=== PATIENT | female | born 1965 | race Caucasian/White ===

== ENCOUNTER → 2016-07-03 | Outpatient (CLI) | payer OTHER ==
[~2016-07-03] MED LIST: ALBU8.5H5 INH; CALCIUM PO; D MANNOSE PO; ESCI10TA10 PO; ESTR0.3T PO; ESTR10TA PO; ESTR1PAT49 TD; FISH OIL PO; GABA300C10 PO; LACT1CAP37 PO; MAGNESIUM PO; POTASSIUM PO; SENN1TAB67 PO; SOLI10TA PO; SOLI5TAB PO; VIT1TABL PO
== END | disposition home or self-care (01) ==
LOC: CFH 12:52
PROVIDERS: ATTEND Internal Medicine
DX: Z13.820 Encounter for screening for osteoporosis (principal); G83.14 Monoplegia of lower limb affecting left nondominant side
CPT/HCPCS: 77080